=== PATIENT | male | born 1990 | race Two or more races ===

== ENCOUNTER 2021-03-02 16:20 | Emergency (ER) | payer MEDICAID, SELFPAY ==
--- NOTE | ~2021-03-02 | XR_ITS ---
EXAMINATION: XR CHEST CLINICAL INFORMATION: Shortness of breath COMPARISON: None TECHNIQUE: 2 views of the chest were obtained. FINDINGS: This exam is abnormal. Opacities bilaterally throughout the lungs may represent areas of infiltrate. Follow-up would be recommended as underlying lesions cannot be completely excluded. There is no effusion. The cardiac silhouette is felt to be within normal limits. XR/XR chest 2V IMPRESSION: Bilateral opacities may well be consistent with areas of diffuse lung infiltrates. Follow-up recommended
[2021-03-02 16:46] VITALS: BP 161/96; PULSE 118; RESP 20; TEMP 36.2; O2SAT 95; BMI 42.5
--- NOTE | 2021-03-02 16:51 | ECG_ITS ---
Test Reason : GENERAL MEDICAL Blood Pressure : / mmHG Vent. Rate : 119 BPM Atrial Rate : 119 BPM P-R Int : 132 ms QRS Dur : 078 ms QT Int : 324 ms P-R-T Axes : 050 057 019 degrees QTc Int : 455 ms Sinus tachycardia Otherwise normal ECG No previous ECGs available Referred By: Generic ED Physician Electronically Signed By:Tae Huffman
--- NOTE | 2021-03-02 20:17 | ED.URI ---
HPI - URI/Sore Throat General Chief Complaint: Upper Respiratory Symptoms Stated Complaint: +covid productive cough Time Seen by Provider: 03/02/21 19:49 Source: patient Mode of arrival: ambulatory Limitations: no limitations History of Present Illness HPI Narrative: 31-year-old male who presents emergency department for evaluation possible COVID pneumonia. The patient states that he tested positive for COVID-19 9 days prior. Patient states that initially had severe fatigue, myalgias, weakness, and cough. He also lost his sense of taste and smell. He states that he was feeling better however over the past 2-3 days he has developed pleuritic chest pain. He states that whenever he takes a deep breath in he feels as if he has a muscle ache in his chest. He states that he has some mild shortness of breath at rest and only mild dyspnea on exertion. He has a cough which is worse at night. 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 Related Data Previous Rx's Medication Instructions Recorded benzonatate 100 mg capsule 100 mg PO TID PRN #20 cap 03/02/21 Allergies Allergy/AdvReac Type Severity Reaction Status Date / Time No Known Allergies Allergy Verified 03/02/21 16:50 Review of Systems Review of Systems: Yes all other systems are reviewed and are negative Neurologic: Reports Abnormal speech present [facility] Past Medical History Attestation statement: The following information was validated with the patient. Social History Social History Advance Directives: No Advance Directives Information Provided: No Physical Exam Vital Signs: Vital Signs: Last Vital Signs Temp 97.2 F 03/02/21 16:46 Pulse 118 H 03/02/21 16:46 Resp 20 03/02/21 16:46 BP 161/96 H 03/02/21 16:46 Pulse Ox 95 03/02/21 16:46 BMI result Body Mass Index 42.5 Const: General: cooperative, no acute distress, well developed, alert and awake Orientation/consciousness: oriented to person HENMT: Head: Yes normal to inspection, Yes normocephalic and Yes atraumatic Ears: hearing grossly normal bilaterally General nose exam: Normal external nose present Face and sinus: Yes normal facial exam Mouth: Normal oral and palatal mucosa present, lip normal, tongue normal, oropharynx normal and moist mucous membranes Throat: Yes posterior oropharynx normal, Yes tonsils normal and Yes uvula midline Eyes: General: appearance normal, both eyes and all related structures Eyelids: Yes eyelids normal Conjunctivae: conjunctivae normal Sclerae: sclerae normal Corneas: corneas normal Pupils: Equal, round and reactive pupils present Neck: Neck: Yes normal visual inspection, Yes no lymphadenopathy, Yes trachea midline and Yes supple Thyroid: Thyroid normal Lymphatic: no lymphadenopathy noted Chest: Chest palpation & inspection: normal inspection of the chest and normal palpation of entire chest wall Resp: Effort & Inspection: normal respiratory effort and able to speak in complete sentences Auscultation: clear to auscultation bilaterally Cardio: Rate: regular rate Rhythm: regular rhythm Heart sounds: S1 normal heart sound present, S2 normal heart sound present and no murmurs GI: Inspection: Yes normal to inspection Palpation (GI): Soft to palpation, nontender and No hepatosplenomegaly present Auscultation: normal bowel sounds : General: Yes no CVA tenderness Back/Spine/Pelvis: Back: no CVA tenderness Thoracic/Lumbar Spine: thoracic and lumbar spine normal to inspection Skin: General skin exam: no rashes or lesions noted, no erythema and no jaundice Lesions: no lesions Rashes: no rashes Trauma: no lacerations or abrasions Wounds: no wounds Neuro: General: oriented to person, moves all extremities and no focal motor deficits Cranial nerves: Yes Equal, round and reactive pupils present Cognition (Neuro): normal cognition Speech: Abnormal speech present Motor exam (neuro): Motor abnormalities not present Extrem: General: Yes normal to inspection, Yes no pedal edema and Yes no calf tenderness Right upper extremity: normal to inspection Left upper extremity: normal to inspection Right lower extremity: normal to inspection Left lower extremity: normal to inspection Psych: Appearance: grossly normal Mental Status: mental status grossly normal Speech and movement: Normal speech and movement present Affect: normal affect Attitude: cooperative Thought process: Normal thought process present Insight: Good insight present (Psych) Course Course Course Narrative: 31-year-old male who presents emergency department for evaluation of possible COVID pneumonia. The patient has been sick for approximately 9 days and some of his symptoms improved however he is newly developed pleuritic chest pain. Patient states that he only has mild shortness of breath at rest and mild dyspnea on exertion. Initial vital signs revealed elevated blood pressure of 161/96, the patient does have known essential hypertension. Patient's pulse was elevated at 118. Patient's O2 saturation was 95% on room air. Lung exam was normal with no wheezing rales or rhonchi. Chest x-ray revealed bilateral opacities with areas of diffuse lung infiltrate. This is consistent with COVID 19 viral pneumonia. I did discuss this with the patient. At this time, steroids are not recommended given the fact that he is not hypoxic. The patient will be on day 10 of his illness tomorrow and may be the on the monoclonal antibody window however I will refer him to the [facility] to see if they will treat him. The patient was given verbal and printed instructions and discharged home he was started on Tessalon Perles for his cough. MDM - URI/Sore Throat ECG Data Attestation: I personally reviewed and interpreted this ECG as follows: Interpretation: 1710: Sinus tachycardia with a rate of 119, normal NE interval, QRS duration and QTC interval, no ST segment elevation, no ST segment depression, no Q-waves, no PACs, no PVCs, inverted T-wave in V1 except for the tachycardia, this is a normal EKG. Discharge Plan Discharge Clinical Impression: Pneumonia due to COVID-19 virus Patient Disposition: Home, Self-Care Instructions: Viral Pneumonia (ED), COVID-19 (Coronavirus Disease 2019) (ED) Additional Instructions: Your chest x-ray revealed that you do have pneumonia and this is caused by the COVID-19 virus. Viral pneumonias do not respond to antibiotics. Your O2 saturation today was 95% on room air. The COVID-19 viral pneumonia does not respond to steroid such as dexamethasone unless youroxygen level is below 88%. You may benefit from the COVID-19 monoclonal antibody treatment. This involves giving you IV antibiotics that help fight off the COVID-19 virus. I filled out the form for the [facility] in [place]. I emailed this form to them. I want you to call the clinic in the morning to see if you can get treated within the next 1-2 days Monoclonal antibody treatment is only effective within the 1st 10 days of illness. Take ibuprofen 200 mg pills, 2 pills every 6 hours as needed for pain. Take Tylenol (acetaminophen) 500 mg pills, 2 pills every 4 to 6 hours as needed for pain. Follow-up with your doctor in 2 days. Please return to the emergency department if your symptoms get worse or if you develop any symptoms that are concerning to you. Prescriptions: New benzonatate 100 mg capsule 100 mg PO TID PRN (Reason: cough) Qty: 20 RF: 0 Interventions: ED Discharge Assessment Last Done: 03/02/21 21:03 Discharge Date/Time: 03/02/21 21:05
[2021-03-02] MEDS: Benzonatate 100 MG CAPSULE 200 MG PO (21:04)
== END 2021-03-02 21:05 | disposition home or self-care (01) ==
PROVIDERS: Emergency Provider Emergency Medicine Emergency Medical Services; PCP Internal Medicine
DX: U07.1 COVID-19 (principal); J12.82 Pneumonia due to coronavirus disease 2019; I10 Essential (primary) hypertension
CPT/HCPCS: 71046; 93005; 99283

== ENCOUNTER 2023-03-14 12:30 | Outpatient (REF) | payer MEDICAID, SELFPAY ==
[2023-03-14 13:25] LABS: Hematocrit 43.8 % (42.0-52.0); Hemoglobin 15.1 g/dl (14.0-18.0); Mean Corpuscular HGB Conc 34.5 g/dl (31.0-36.0); Mean Corpuscular Hemoglobin 29.8 pg (27.0-33.0); Mean Corpuscular Volume 86.6 fL (80.0-98.0); Mean Platelet Volume 9.5 fL (9.4-12.4); Platelet Count 347 X10*3/uL (160-400); Red Blood Count 5.06 X10*6/uL (4.60-5.80); Red Cell Distribution Width 12.6 % (11.0-16.0); White Blood Count 7.8 X10*3/uL (4.8-10.8)
[2023-03-14 13:42] LABS: Estimated Average Glucose 105 mg/dL; Hemoglobin A1c % 5.3 % (<6.0)
[2023-03-14 14:09] LABS: Alanine Aminotransferase 23 U/L (0-40); Albumin Level 4.4 g/dL (3.5-5.0); Alkaline Phosphatase 67 U/L (39-117); Anion Gap 12 (12-20); Aspartate Amino Transferase 20 U/L (5-37); Bilirubin Direct 0.2 mg/dL (0.0-0.5); Bilirubin Total 0.5 mg/dL (0.0-1.0); Blood Urea Nitrogen 14 mg/dL (9-16); Calcium 9.5 mg/dL (8.4-10.2); Carbon Dioxide 26 mmol/L (22-29); Chloride 104 mmol/L (96-108); Estimated Glomerular Filt Rate > 60; Glucose Random 94 mg/dL (60-115); Potassium 3.8 mmol/L (3.3-5.1); Sodium 138 mmol/L (135-145); Total Protein 7.7 g/dL (6.5-8.0)
[2023-03-14 14:14] LABS: Thyroid Stimulating Hormone 1.68 uIU/mL (0.32-4.0); Vitamin D 25-OH Total 17.7 ng/mL (>30)
[2023-03-15 08:02] LABS: HBS Num1 409.58 mIU/mL (0-7.99); HBsAGNum1 0.38 S/CO (0.00-0.99); HIV AB/AG Nonreactive (Nonreactive); HIV Num 1 0.28 S/CO (0.00-0.99); Hepatitis B Surface Antigen Negative (Negative); ~HepC Num1 0.11 S/CO (0.00-0.79); ~Hepatitis B Surface Antibody REACTIVE (Nonreactive); ~Hepatitis C Antibody Nonreactive (Nonreactive)
[2023-03-16 13:23] LABS: RPR Rapid Plasma Reagin NON-REACTIVE (NON-REACTIVE)
== END 2023-03-14 12:31 | disposition home or self-care (01) ==
LOC: HO.HHCL 12:30
PROVIDERS: Visit Provider Family Medicine
DX: I10 Essential (primary) hypertension (principal)
CPT/HCPCS: 36415; 80048; 80076; 82306; 83036; 84439; 84443; 85027; 86592; 86706; 86803; 87340; 87389

== ENCOUNTER 2024-07-04 11:46 | Outpatient (REF) | payer MEDICAID, SELFPAY ==
--- OUTSIDE RECORDS SUMMARY | 2024-07-04 12:44 | XMS_ITS | Encounter Summary ---
Author Organization [employer] Address [address] [facility] [address] [place] [address] Care Team Providers Care Loom Stop Checker Name Role Phone Elizabeth Starr DO Primary Care Provider [phone] Reason for Visit * Reason Onset Date Comments Nurse Triage 02/06/2024 Encounter Details Date Type Department Care Team ([facility] st Contact Info) Description 02/06/2024 Telephone [facility] [address] [place], [place] [phone] Elizabeth Starr DO [address] [place] [address] Nurse Triage Social History Tobacco Use Types Packs/Day Years Used Date Smoking Tobacco: Never Depression Answer Date Recorded Patient Health Questionnaire-9 Score 0 03/14/2023 Patient Health Questionnaire-9 Score 0 03/14/2023 Last PHQ-9: Questionnaire Data Not on file 1 05/15/2022 Housing Stability Answer Date Recorded What is your housing situation today? I have trino vizcarra 01/29/[address] you li ve. Do you have problems with any of the following? None of the above 01/29/2023 Food Insecurity Answer Date Recorded Within the past 12 months, y ou worried that your food would run out before you got money to buy more: Sometimes True 2022 Within the past 12 months,th e food you bought just didn't last and you didn't have enough money to get more: Sometimes True 01/29/2023 Transportation Answer Date Recorded In the past 12 months, has l ack of transportation kept you from medical appts, meetings, work or from getting things needed for daily living? No 01/29/2023 Utilities Answer Date Recorded In the past 12 months, has t he electric, gas, oil or water company threatened to shut off services in your home? No 01/29/2023 Depression Answer Date Recorded Patient Health Questionnaire-2 Score 0 03/14/2023 Sex and Gender Information Value Date Recorded Sex Assigned at Male 01/23/2022 10:24 AM EDT Legal Sex Male 10:24 AM EDT Gender Identity Male 01/23/2022 10:24 AM EDT Sexual Orientation Choose not to disclose 2021 10:24 AM EDT documented as of this encounter Miscellaneous Notes * Telephone Encounter - Caridad Staples RN - 02/06/2024 3:05 PM EST Triage call Pt reports sinus sx for a year now but, much worse recently. Pt reports a growth in right nare which is blocking breathing through the nose. Pt thinks it could be cartilage which has shifted. Pt reports it is hard to breath at times and Pt feels a lot of pressure in the facial area. Pt reports post nasal drip is present frequently, neg for cough, fever. Pt is unable to taste/smell due to this blockage. Pt requests to see PCP. ASK apt with Dr. Starr 02/14/24 @ 1145am. Pt agrees with this disposition. Pt is advised if the symptoms become worse before this apt seek evaluation at closest ED. Pt agrees with this advice. Insurance is verified as active prior to booking. Protocol Used: Sinus Pain or Congestion (Adult) Protocol-Based Disposition: See in Office or Video Visit Today or Tomorrow Video visit not offered Positive Triage Questions: * Sinus congestion (pressure, fullness) present > 10 days * Patient wants to be seen * All higher-acuity triage questions were negative Care Advice Discussed: * Reassurance and Education - Colds and Sinus Congestion * Hydration * Expected Course * Reasons To Call Back - Severe pain lasts over 2 hours after pain medicine - Sinus pain lasts over 1 day after using nasal washes - Sinus congestion (fullness) lasts over 10 days - Fever lasts over 3 days - You become worse * Telephone Encounter - Vidhi Omalley - 02/06/2024 2:42 PM EST Symptom: Sinus Symptoms Outcome: Schedule an appointment to be seen within 24 hours Reason: Caller denied all higher acuity questions The caller accepted this outcome. documented in this encounter Plan of Treatment Not on file documented as of this encounter Visit Diagnoses Not on filedocumented in this encounter Additional Health Concerns Assessment Noted Time PHQ-9 Depression Total Score: 0 03/14/20 11:29 AM EST documented as of this encounter Care Teams Loom Stop Checker Relationship Specialty Start Date End Date Elizabeth Starr DO [address] [place] [id number] PCP - General Family Medicine 03/14/23 documented as of this encounter
--- OUTSIDE RECORDS SUMMARY | 2024-07-04 12:44 | XMS_ITS | Encounter Summary ---
Author Organization [employer] Address [address] [facility] [address] [place] [address] Care Team Providers Care Floor Care Technician Name Role Phone Elizabeth Starr DO Primary Care Provider + [phone] Reason for Visit * Reason Comments Med Refill Encounter Details Date Type Department Care Team ([facility] st Contact Info) Description 07/02/2024 Refill [facility]EDS [address] [place] [address] Elizabeth Starr DO [address] [place] [address] Social History Tobacco Use Types Packs/Day Years Used Date Smoking Tobacco: Never Depression Answer Date Recorded Patient Health Questionnaire-9 Score 14 07/04/2024 Patient Health Questionnaire-9 Score 14 07/04/2024 Last PHQ-9: Questionnaire Data Not on file 0 07/04/2024 Housing Stability Answer Date Recorded What is your housing situation today? I have trino vizcarra 07/04/[address] you li ve. Do you have problems with any of the following? None of the above 07/04/2024 Food Insecurity Answer Date Recorded Within the past 12 months, y ou worried that your food would run out before you got money to buy more: Sometimes True 2024 Within the past 12 months,th e food you bought just didn't last and you didn't have enough money to get more: Sometimes True 07/04/2024 Transportation Answer Date Recorded In the past 12 months, has l ack of transportation kept you from medical appts, meetings, work or from getting things needed for daily living? No 07/04/2024 Utilities Answer Date Recorded In the past 12 months, has t he electric, gas, oil or water company threatened to shut off services in your home? No 07/04/2024 Depression Answer Date Recorded Patient Health Questionnaire-2 Score 4 07/04/2024 Internet Access Answer Date Recorded Internet Access Q1 Yes 07/04/2024 Internet Access Q2 Not on file 07/04/2024 Sex and Gender Information Value Date Recorded Sex Assigned at Male 01/23/2022 10:24 AM EDT Legal Sex Male 10:24 AM EDT Gender Identity Male 01/23/2022 10:24 AM EDT Sexual Orientation Choose not to disclose 2021 10:24 AM EDT documented as of this encounter Plan of Treatment Not on file documented as of this encounter Visit Diagnoses Not on filedocumented in this encounter Additional Health Concerns Assessment Noted Time PHQ-9 Depression Total Score: 0 03/14/20 11:29 AM EST documented as of this encounter Care Teams Floor Care Technician Relationship Specialty Start Date End Date Elizabeth Starr DO [address] [place] [id number] PCP - General Family Medicine 03/14/23 documented as of this encounter
--- OUTSIDE RECORDS SUMMARY | 2024-07-04 12:44 | XMS_ITS | Encounter Summary ---
Author Organization [employer] Address [address] [facility] [address]t [place] [address] Care Team Providers Care Health Inspector Food Name Role Phone Twila Lopez Primary Care Provider + Elizabeth Starr DO Primary Care Provider + [phone] Reason for Visit * Reason Comments Med Refill Encounter Details Date Type Department Care Team (Late st Contact Info) Description 02/12/2023 Refill [facility] [address] [place] [address] Twila Lopez FNP [address] [place] [address] Primary hypertension Social History Tobacco Use Types Packs/Day Years Used Date Smoking Tobacco: Never Assessed Housing Stability Answer Date Recorded What is [...] the past 12 months, has t he [employer], gas, oil or water [employer] threatened to shut off services in your home? No 01/29/2023 Depression Answer Date Recorded Patient Health Questionnaire-2 Score 1 03/07/2022 Sex and Gender Information Value Date Recorded Sex Assigned at Male 01/23/2022 10:24 AM EDT Legal Sex Male 10:24 AM EDT Gender Identity Male 01/23/2022 10:24 AM EDT Sexual Orientation Choose not to disclose 2021 10:24 AM EDT documented as of this encounter Plan of Treatment Not on file documented as of this encounter Visit Diagnoses Diagnosis Primary hypertension Unspecified essential hypertension documented in this encounter Care Teams Health Inspector Food Relationship Specialty Start Date End Date Twila Lopez FNP [address] [place] [address] PCP - General Family Medicine 01/03/22 03/13/23 Elizabeth Starr DO [address] [place] [address] PCP - General Family Medicine 03/14/23 documented as of this encounter
--- OUTSIDE RECORDS SUMMARY | 2024-07-04 12:44 | XMS_ITS | Encounter Summary ---
Author Organization [employer] Address [address] [facility] [address] [place] [address] Care Team Providers Care Employee Benefits Administrator Name Role Phone Elizabeth Starr DO Primary Care Provider + [phone] Reason for Visit * Reason Onset Date Comments insurance call 07/02/2024 Encounter Details Date Type Department Care Team (Late st Contact Info) Description 07/02/2024 Telephone [facility] [address] [place], [place] [phone] Elizabeth Starr DO [address] [place] [address] insurance call Social History Tobacco Use Types Packs/Day Years [...] encounter Miscellaneous Notes * Telephone Encounter - Cindy Dillon - 07/02/2024 10:52 AM EDT Called PT to let him know that his insurance is link to another PCP and will need to link it to current PCP Elizabeth Starr. PT NA\LVM documented in this encounter Plan of Treatment Not on file documented as of this encounter Visit Diagnoses Not on filedocumented in this encounter Additional Health Concerns Assessment Noted Time PHQ-9 Depression Total Score: 0 03/14/20 11:29 AM EST documented as of this encounter Care Teams Employee Benefits Administrator Relationship Specialty Start Date End Date Elizabeth Starr DO [address] [place] [address] PCP - General Family Medicine 03/14/23 documented as of this encounter
--- OUTSIDE RECORDS SUMMARY | 2024-07-04 12:44 | XMS_ITS | Encounter Summary ---
Author Organization [employer] Address [address] [facility] [address] [place] [address] Care Team Providers Care Advanced Research Programs Director Name Role Phone Twila Lopez Primary Care Provider +- Elizabeth Starr DO Primary Care Provider [phone] Encounter Details Date Type Department Care Team (Late st Contact Info) Description 11/01/2022 Orders Only [facility]S [address] [place] [address] Twila Lopez FNP [address] [place] [address] Social History Tobacco Use Types Packs/Day Years Used Date Smoking Tobacco: Never Assessed Depression Answer Date Recorded Patient Health Questionnaire-2 [...] Diagnoses Not on filedocumented in this encounter Care Teams Advanced Research Programs Director Relationship Specialty Start Date End Date Twila Lopez FNP [address] [place] [address] PCP - General Family Medicine 01/03/22 03/13/23 Elizabeth Starr DO [address] [place] [address] PCP - General Family Medicine 03/14/23 documented as of this encounter
--- OUTSIDE RECORDS SUMMARY | 2024-07-04 12:44 | XMS_ITS | Encounter Summary ---
Author Organization [employer] Address [address] [place] [address] Care Team Providers Care Military Science Instructor Name Role Phone Elizabeth Starr DO Primary Care Provider + [phone] Encounter Details Date Type Department Care Team ([facility] st Contact Info) Description 07/04/2024 10:30 AM EDT Office Visit [facility] MED[facility] [address] [place], [place] [phone] Elizabeth Starr DO [address] [place] [address] Routine history and physical examination of adult (Primary Dx); Essential hypertension; Mild intermittent asthma without complication; Chronic bipolar disorder (CMS/HCC); BMI 45.0-49.9, adult ([facility]/HCC) Social History Tobacco Use Types Packs/Day Years Used Date Smoking Tobacco: Some Days Cigarettes Passive Smoke Exposure: Current Tobacco Cessation:Ready to Q uit: Not Asked; Counseling Given: Not Answered Alcohol Use Standard Drinks/Week Comments Never 0 (1 standard drink = 0.6 oz pur e alcohol) Depression Answer Date Recorded Patient Health Questionnaire-9 [...] AM EDT documented as of this encounter Last Filed Vital Signs Vital Sign Reading Time Taken Comments Blood Pressure 190/121 07/04/2024 10:45 AM EDT Pulse 107 07/04/2024 10:45 AM EDT Temperature 36.8 ??C (98.3 ??F) 07/04/2024 10:45 AM E DT Respiratory Rate 16 07/04/2024 10:45 AM EDT Oxygen Saturation 99% 07/04/2024 10:45 AM EDT Inhaled Oxygen Concentration - - Weight 138 kg (304 lb 9.6 oz) 07/04/2024 10:45 A M EDT Height 172.7 cm (5' 8 ) 07/04/2024 10:45 AM EDT Body Mass Index 46.31 07/04/2024 10:45 AM EDT documented in this encounter Plan of Treatment Scheduled Orders Name Type Priority Associated Diagnoses Orde r Schedule T4, Free Lab Routine Routine history and physical examination of adult Essential hypertension Mild intermittent asthma without complication Chronic bipolar disorder (CMS/HCC) BMI 45.0-49.9, adult (CMS/HCC) Expected: 07/04/2024 (Approximate), Expires: 07/04/2025 Vitamin D, 25-Hydroxy, Total, Immunoassay Lab Routine Routine history and physical examination of adult Essential hypertension Mild intermittent asthma without complication Chronic bipolar disorder ([facility]/HCC) BMI 45.0-49.9, adult ([facility]) Expected: 07/04/2024 (Approximate), Expires: 07/04/2025 Lipid Panel, Standard Lab Routine Routine history and physical examination of adult Essential hypertension Mild intermittent asthma without complication Chronic bipolar disorder ([facility]/HCC) BMI 45.0-49.9, adult ([facility]) Expected: 07/04/2024 (Approximate), Expires: 07/04/2025 TSH Lab Routine Routine history and physical examination of adult Essential hypertension Mild intermittent asthma without complication Chronic bipolar disorder ([facility]) BMI 45.0-49.9, adult ([facility]) Expected: 07/04/2024 (Approximate), Expires: 07/04/2025 Hepatic Function Panel Lab Routine Routine history and physical examination of adult Essential hypertension Mild intermittent asthma without complication Chronic bipolar disorder ([facility]) BMI 45.0-49.9, adult ([facility]) Expected: 07/04/2024 (Approximate), Expires: 07/04/2025 Hemoglobin A1c Lab Routine Routine history and physical examination of adult Essential hypertension Mild intermittent asthma without complication Chronic bipolar disorder ([facility]) BMI 45.0-49.9, adult ([facility]) Expected: 07/04/2024 (Approximate), Expires: 07/04/2025 Basic Metabolic Panel Lab Routine Routine history and physical examination of adult Essential hypertension Mild intermittent asthma without complication Chronic bipolar disorder ([facility]) BMI 45.0-49.9, adult ([facility]) Expected: 07/04/2024 (Approximate), Expires: 07/04/2025 CBC Lab Routine Routine history and physical examination of adult Essential hypertension Mild intermittent asthma without complication Chronic bipolar disorder ([facility]/HCC) BMI 45.0-49.9, adult ([facility]) Expected: 07/04/2024, Expires: 07/04/2025 Albumin, Random Urine W/Creatinine Lab Routine Routine history and physical examination of adult Essential hypertension Mild intermittent asthma without complication Chronic bipolar disorder ([facility]) BMI 45.0-49.9, adult ([facility]) Expected: 07/04/2024 (Approximate), Expires: 07/04/2025 Hepatitis B surface antigen, EIA Lab Routine Routine history and physical examination of adult Essential hypertension Mild intermittent asthma without complication Chronic bipolar disorder ([facility]/HCC) BMI 45.0-49.9, adult ([facility]) Expected: 07/04/2024 (Approximate), Expires: 07/04/2025 Chlamydia/N. Gonorrhoeae RNA, TMA, Urogenitial Microbiology Routine Routine history and physical examination of adult Essential hypertension Mild intermittent asthma without complication Chronic bipolar disorder ([facility]/HCC) BMI 45.0-49.9, adult ([facility]) Ordered: 07/04/2024 HIV-1/2 Antigen and Antibodies, Fourth Generation, with Reflexes Lab Routine Routine history and physical examination of adult Essential hypertension Mild intermittent asthma without complication Chronic bipolar disorder (CMS/HCC) BMI 45.0-49.9, adult ([facility]) Expected: 07/04/2024 (Approximate), Expires: 07/04/2025 Hepatitis C Antibody with Reflex to HCV, RNA, Quantitative, Real-Time PCR Lab Routine Routine history and physical examination of adult Essential hypertension Mild intermittent asthma without complication Chronic bipolar disorder (CMS/HCC) BMI 45.0-49.9, adult ([facility]) Expected: 07/04/2024, Expires: 07/04/2025 RPR (Monitor) with Reflex to??Titer Lab Routine Routine history and physical examination of adult Essential hypertension Mild intermittent asthma without complication Chronic bipolar disorder ([facility]/HCC) BMI 45.0-49.9, adult ([facility]) Expected: 07/04/2024, Expires: 07/04/2025 Hepatitis B Surface Antibody, Qualitative Lab Routine Routine history and physical examination of adult Essential hypertension Mild intermittent asthma without complication Chronic bipolar disorder ([facility]/HCC) BMI 45.0-49.9, adult ([facility]) Expected: 07/04/2024 (Approximate), Expires: 07/04/2025 Hepatitis A Antibody, Total Lab Routine Routine history and physical examination of adult Essential hypertension Mild intermittent asthma without complication Chronic bipolar disorder (CMS/HCC) BMI 45.0-49.9, adult ([facility]) Expected: 07/04/2024 (Approximate), Expires: 07/04/2025 Hepatitis B Core Antibody, Total Lab Routine Routine history and physical examination of adult Essential hypertension Mild intermittent asthma without complication Chronic bipolar disorder ([facility]) BMI 45.0-49.9, adult ([facility]) Expected: 07/04/2024 (Approximate), Expires: 07/04/2025 documented as of this encounter Visit Diagnoses Diagnosis Routine history and physical examination of adult- Primary Essential hypertension Unspecified essential hypertension Mild intermittent asthma without complication Chronic bipolar disorder ([facility]) BMI 45.0-49.9, adult ([facility]) documented in this encounter Additional Health Concerns Assessment Noted Time PHQ-9 Depression Total Score: 14 025 11:35 AM EDT documented as of this encounter Care Teams Military Science Instructor Relationship Specialty Start Date End Date Elizabeth Starr DO [address] [place] [id number] PCP - General Family Medicine 03/14/23 documented as of this encounter
--- OUTSIDE RECORDS SUMMARY | 2024-07-04 12:44 | XMS_ITS | Encounter Summary ---
Author Organization [employer] Address [address] [facility] 7t [place] [address] Care Team Providers Care Brood Hatchery Manager Name Role Phone Twila Lopez Primary Care Provider [phone] Elizabeth Starr DO Primary Care Provider [phone] Reason for Visit * Reason Onset Date Comments Med Refill 04/13/2022 Encounter Details Date Type Department Care Team (Late st Contact Info) Description 04/13/2022 Telephone [facility] MEDICINE [address] [place] [address] Twila Lopez FNP [address] [place] [address] Med Refill Social History Tobacco Use Types Packs/Day Years [...] encounter Miscellaneous Notes * Telephone Encounter - lEizabeth Chandler LPN - 04/13/2022 1:56 PM EST Medication queued to PCP awaiting approval. * Telephone Encounter - Vidhi Omalley - 04/13/2022 1:33 PM EST Tc from pt spouse felipa requesting med refill for medication hydroCHLOROthiazide (HYDRODiuril) 25MG tablet . [facility] pharmacy informed pt that the insurance is not covering the 30 day supply , if it can be switched over to the 90 day . documented in this encounter Plan of Treatment Not on file documented as of this encounter Visit Diagnoses Not on filedocumented in this encounter Care Teams Brood Hatchery Manager Relationship Specialty Start Date End Date Twila Lopez FNP [address] [place], [place] [phone] PCP - General Family Medicine 01/03/22 03/13/23 Elizabeth Starr DO [address] [place] [address] PCP - General Family Medicine 03/14/23 documented as of this encounter
--- OUTSIDE RECORDS SUMMARY | 2024-07-04 12:45 | XMS_ITS | Patient Health Record ---
Author Organization [facility] Address [address] [place] [address] Support Name Relationship Address Phone Mark Viera Guarantor Unknown Unavailable Reason For Referral No Information Plan Of Treatment No Information Insurance Providers Payer Name Payer Address Payer Phone Subscriber Number Group Number Insured Name Patient Relationship to Insured Coverage Start Date Coverage End Date M Self Pay [id number] [place] [phone] Mark Viera Self - patient is the insured
--- OUTSIDE RECORDS SUMMARY | 2024-07-04 12:45 | XMS_ITS | Encounter Summary ---
Author Organization [employer] Address [address] [place] [address] Care Team Providers Care Traffic Analyst Name Role Phone RoElizabeth Primary Care Provider + [phone] Encounter Details Date Type Department Care Team (Latest Contact Info) Description 07/04/2024 Travel Social History Tobacco Use Types Packs/Day Years Used Date Smoking Tobacco: Some Days Cigarettes Passive Smoke Exposure: Current Alcohol Use Standard Drinks/Week Comments Never 0 [...] documented as of this encounter Care Teams Traffic Analyst Relationship Specialty Start Date End Date Elizabeth Starr DO [address] [place] [address] PCP - General Family Medicine 03/14/23 documented as of this encounter
--- OUTSIDE RECORDS SUMMARY | 2024-07-04 12:45 | XMS_ITS ---
Author Organization [employer] Address [address] [place] [address] Care Team Providers Care Soa Engineer Name Role Phone [facility] Unavailable [phone] REASON FOR VISIT RL TO [facility] Prescription Refill Encounters Encounter Location Date Provider Diagnosis [facility] [address] [place] [address] 02/12/2023 [facility] Plan Of Treatment No Information Progress Notes * Kristy VIERAOB:1990 ([age] yo M)Acc No.[id number]:02/12/2023 Patient:?Mark VIERA Provider:?[facility] :1990???Age:33 Y???Sex:Male Lyle e:02/12/2023 Phone: Address:[address] [place], [place]-[phone] Subjective: * Chief Complaints: * ???1. RL TO [facility] Prescri ption Refill. * Medical History:? Objective: * Vitals:? Assessment: Plan: * Treatment: * Billing Information: * Visit Code:? * Procedure Codes:? * Electronic signature of [facility] on 07/04/2024 at 12:44 PM EDT Sign off status: Pending * Provider:?[facility] Date:?04/14/2022 Generated for Sukumar burr/Jomar/eTransmitting on:?07/04/2024 12:44 PM EDT
--- OUTSIDE RECORDS SUMMARY | 2024-07-04 12:45 | XMS_ITS | Clinical Summary ---
Author Organization [employer] Address [address] [facility] [address] [place] [address] Care Team Providers Care Registered Account Administrator Name Role Phone Elizabeth Starr DO Primary Care Provider [phone] Allergies No known active allergies Medications cholecalciferol (Vitamin D-3) 50 MCG (1999) capsuleIndication s:Vitamin D deficiency Take 1 tablet by mouth daily 90 capsule 3 3 Active hydroCHLOROthiazi de (HYDRODiuril) 25 MG tabletIndications :Primary hypertension TAKE 1 TABLET BY MOUTH EVERY DAY IN THE MORNING 90 tablet 1 4 Active albuterol 108 (90 Base) MCG/ACT inhaler INHALE 2 PUFFS BY MOUTH EVERY 4 HOURS IF NEEDED. 6.7 g 2 4 Active lisinopril (Prinivil) 10 MG tablet Take 1 tablet (10 mg) by mouth Once per day. 30 tablet 3 4 03/07/20 25 Active Active Problems Problem Noted Date Diagnosed Date Vitamin D deficiency 07/04/2024 BMI 45.0-49.9, adult 03/14/2023 Essential hypertension 03/14/2023 Mild intermittent asthma 03/14/2023 Chronic bipolar disorder 03/14/2023 Anxiety 03/14/2023 Encounters Date Type Department Care Team Description 07/04/2024 10:30 AM EDT Office Visit [facility] MEDICINE [address] [place] [address] Elizabeth Starr DO Routine history and physical examination of adult (Primary Dx); Essential hypertension; Mild intermittent asthma without complication; Chronic bipolar disorder (CMS/HCC); BMI 45.0-49.9, adult ([facility]) 07/04/2024 Travel 07/02/2024 Telephone [facility] [address] [place] [address] Elizabeth Starr DO insurance call 07/02/2024 Refill [facility] [address] [place], [place] [phone] Elizabeth Starr DO 06/27/2024 Patient Outreach [facility] [address], [place] [phone] Elizabeth Starr, Pre-visit Planning ([facility] unable to reach LVM) 06/27/2024 Travel 05/13/2024 Telephone [facility] [address] [place] [address] Elizabeth Starr DO Recall Appt. 05/13/2024 Travel from Last 3 Months Immunizations Name Administration Dates Next Due Hep B, adult 01/27/2021 Influenza Injectable Quadriv alant Preservative Free IIV4 MDCK 01/03/2022 Influenza injectable quadrivalent preservative f ree 02/04/2021,03/04/2020 Tdap 01/27/2021 Family History Medical History Relation Name Comments Hypertension Father Colon cancer Maternal Grandmother Diabetes Maternal Grandmother Bipolar disorder Mother HUGO disease Mother Diabetes Mother's Brother Lung cancer Paternal Grandmother Relation Name Status Comments Father Maternal Grandmother Mother Mother's Brother Paternal Grandmother Social History Tobacco Use Types Packs/Day Years [...] not to disclose 2021 10:24 AM EDT Last Filed Vital Signs Vital Sign Reading [...] Mass Index 46.31 07/04/2024 10:45 AM EDT Plan of Treatment Health Maintenance Due Date Last Done Comments Alcohol/Substance Use Screening 2001 Family Planning (PISQ) 01/17/2004 Pneumococcal Vaccine: Pediatrics (0 to 5 Years) and At-Risk Patients (6 to 49) Years) (1 of 2 - PCV) 01/17/2008 Hepatitis B Vaccines (2 of 3 - 19+ 3-dose series) 02/24/2021 01/27/2021 COVID-19 Vaccine (1 - 2023-2 5 season) 2023 Influenza Vaccine (#1) 2023 , 02/04/2021, 03/04/2020 Depression Monitoring 01/03/2025 07/04/2024 , 07/04/2024 Depression Screening 07/04/2025 07/04/2024, 07/04/2024 SDOH Screening 07/04/2025 07/04/2024 Tobacco Screening 07/04/2025 07/04/2024 Lipid Panel 01/25/2026 01/25/2021 DTaP/Tdap/Td Vaccines (2 - T d or Tdap) 01/27/2031 01/27/2021 Zoster Vaccines (1 of 2) 2039 RSV Patients and Patients Aged 60 years or older (1 - 1-dose 75+ series) 01/17/2064 HIV Screening Completed 03/14/2023, 01/25/2021 Hepatitis C Screening Completed 03/14/2023 , 01/25/2021 HIB Vaccines Aged Out No longer eligi ble based on patient's age to complete this topic HPV Vaccines Aged Out No longer eligi ble based on patient's age to complete this topic Hepatitis A Vaccines Aged Out No long er eligible based on patient's age to complete this topic IPV Vaccines Aged Out No longer eligi ble based on patient's age to complete this topic Meningococcal Vaccine Aged Out No leodan hugo eligible based on patient's age to complete this topic RSV under 20 months Aged Out No longe r eligible based on patient's age to complete this topic Rotavirus Vaccines Aged Out No longer eligible based on patient's age to complete this topic Procedures Procedure Name Priority Date/Time Associated Diagnosis Comments HEPATITIS C AB W/REFL TO HCV RNA, QN, PCR Routine 03/14/2023 12:32 PM EST Essential hypertension HIV 1/2 ANTIGEN/ANTIBODY, FOURTH GENERATION W/RFL Routine 03/14/2023 12:32 PM EST Essential hypertension LIPID PANEL, STANDARD Routine 01/25/2021 9:21 AM EDT from Last 3 Months or Most Recently Relevant to Health Maintenance Results * Hepatitis C Antibody with Reflex to HCV, RNA, Quantitative, Real-Time PCR (03/14/2023 12:32 PM EST) Hepatitis C Antibody Nonreactive Nonreactive [facility] Comment:Antibodies to HCV no t detected; does not exclude early acuteHCV infection. Blood Venous blood specimen / Unknown 03/14/2023 12:32 PM EST 03/14/2023 1:10 PM EST us Elizabeth Starr DO LAB BLOOD ORDERABLES Final R esult Performing Organization Address [facility]/ZIP Co de Phone Number [facility] [address] [place] [phone] * HIV-1/2 Antigen and Antibodies, Fourth Generation, with Reflexes (03/14/2023 12:32 PM EST) HIV AB/AG Nonreactive Nonreactive [facility] Comment:HIV-1 p24 Ag and/or HIV-1/HIV-2 Ab not detected.A test result that is nonreactive does not exclude thepossibility of exposure to or infection with HIV-1 and/orHIV-2. Nonreactive results in this assay for individualswith prior exposure to HIV-1 and/or HIV-2 may be due toantigen and antibody levels that are below the limit ofdetection of this assay.The [employer] HIV Ag/Ab Combo assay result andsupplemental assay results should be interpreted inconjunction with the patient's clinical presentation,history and other laboratory results. If the results areinconsistent with clinical evidence, additional testing issuggested to confirm the result. Blood Venous blood specimen / Unknown 03/14/2023 12:32 PM EST 03/14/2023 1:10 PM EST us Elizabeth Starr DO LAB BLOOD ORDERABLES Final R esult Performing Organization Address City/[facility]/ZIP Co de Phone Number [facility] [address] [place] [address] [phone] * (ABNORMAL) LIPID PANEL, STANDARD (01/25/2021 9:21 AM EDT) Chol/HDLC Ratio 5.1(H) <5.0 (calc) [facility] Cholesterol, Total 185 <200 mg/dL [facility] HDL Cholesterol 36(L) > OR = 40 mg/dL [facility] LDL Cholesterol 130(H) mg/dL (calc) [facility] Comment: Reference range: <100 ?? Desirable range <100 mg/dL for primary prevention; ?? <70 mg/dL for patients with CHD or diabetic patients ?? with > or = 2 CHD risk factors. ?? LDL-C is now calculated using the Rosy ?? calculation, which is a validated novel method providing ?? better accuracy than the Friedewald equation in the ?? estimation of LDL-C. ?? Kain GUADARRAMA et al. ANSLEY. 2013;310(19): 4037-2186 ?? (http://education.M[employer]/faq/GDE663) Non-HDL Cholesterol 149(H) <130 mg/dL (calc) [facility] Comment: For patients with diabetes plus 1 major ASCVD risk ?? factor, treating to a non-HDL-C goal of <100 mg/dL ?? (LDL-C of <70 mg/dL) is considered a therapeutic ?? option. Triglycerides 87 <150 mg/dL [facility] 01/25/2021 9:21 AM EDT us Ermias Gonzalez MD LAB BLOOD ORDERABLES Final R esult [facility] [address] from Last 3 Months or Most Recently Relevant to Health Maintenance Insurance [employer] PPO Care Teams Registered Account Administrator Relationship Specialty Start Date End Date Elizabeth Starr DO [address] [place] [phone] PCP - General Family Medicine 03/14/23
--- OUTSIDE RECORDS SUMMARY | 2024-07-04 12:45 | XMS_ITS | Clinical Summary ---
Author Organization [facility] Address [address] [place] [address] Care Team Providers Care Rescue Worker Name Role Phone Unavailable Primary Care Provider Unavailabl e Social History Tobacco Use Types Packs/Day Years Used Date Smoking Tobacco: Never Assessed Sex and Gender Information Value Date Recorded Sex Assigned at Not on file Legal Sex Male 1:39 PM EDT Gender Identity Not on file Sexual Orientation Not on file Plan of Treatment Health Maintenance Due Date Last Done Comments DTaP,Tdap,and Td Vaccines (1 - Tdap) 01/17/2008 Hepatitis B Vaccines (1 of 3 - 19+ 3-dose series) 01/17/2008 Cholesterol Screening (Lipid Panel) 10/17/2023 Depression Screening 10/17/2023 HIV Screening 10/17/2023 Hepatitis C Screening 10/17/2023 Social Influencers of Health Screening 10/17/2023 COVID-19 Vaccine ( - 2023-2 5 season) 2023 Influenza Vaccine (Season Ended) 2024 HIB Vaccines Aged Out No longer eligi [...] on patient's age to complete this topic MMR Vaccines Aged Out No longer eligi ble based on patient's age to complete this topic Meningococcal ACWY Vaccine Aged Out N o longer eligible based on patient's age to complete this topic Meningococcal B Vaccine Aged Out No l onger eligible based on patient's age to complete this topic Pneumococcal Vaccine: Pediat rics (0 to 5 Years) and At-Risk Patients (6 to 64 Years) Aged Out No longer eligible b ased on patient's age to complete this topic RSV Immunization Patients Un eric 20 months Aged Out No longer eligible b ased on patient's age to complete this topic Varicella Vaccines Aged Out No longer eligible based on patient's age to complete this topic
[2024-07-04 13:27] LABS: Hematocrit 44.3 % (42.0-52.0); Hemoglobin 15.2 g/dl (14.0-18.0); Mean Corpuscular HGB Conc 34.3 g/dl (31.0-36.0); Mean Corpuscular Hemoglobin 29.6 pg (27.0-33.0); Mean Corpuscular Volume 86.2 fL (80.0-98.0); Mean Platelet Volume 9.7 fL (9.4-12.4); Platelet Count 322 X10*3/uL (160-400); Red Blood Count 5.14 X10*6/uL (4.60-5.80); Red Cell Distribution Width 12.3 % (11.0-16.0); White Blood Count 7.3 X10*3/uL (4.8-10.8)
[2024-07-04 13:42] LABS: Alanine Aminotransferase 36 U/L (0-40); Albumin Level 4.6 g/dL (3.5-5.0); Alkaline Phosphatase 71 U/L (39-117); Anion Gap 10 (12-20); Aspartate Amino Transferase 30 U/L (5-37); Bilirubin Direct 0.2 mg/dL (0.0-0.5); Bilirubin Total 0.6 mg/dL (0.0-1.0); Blood Urea Nitrogen 12 mg/dL (9-16); Calcium 9.2 mg/dL (8.4-10.2); Carbon Dioxide 30 mmol/L (22-29); Chloride 104 mmol/L (96-108); Cholesterol 191 mg/dL (<200); Estimated Glomerular Filt Rate > 60; Glucose Random 91 mg/dL (60-115); HDL Cholesterol 38 mg/dL (>40); LDL Cholesterol Calculated 131 mg/dL (<100); Potassium 4.2 mmol/L (3.3-5.1); Sodium 140 mmol/L (135-145); Total Protein 7.7 g/dL (6.5-8.0); Triglycerides 110 mg/dL (<150)
[2024-07-04 13:44] LABS: Estimated Average Glucose 108 mg/dL; Hemoglobin A1c % 5.4 % (<6.0); Total Hemoglobin (HGBA1C) 3977.8649 umol/L
[2024-07-04 14:04] LABS: HBS Num1 397.04 mIU/mL (0-7.99); HBc Num1 0.07 S/CO (0.00-0.79); HBsAGNum1 0.32 S/CO (0.00-0.99); HIV AB/AG Nonreactive (Nonreactive); HIV Num 1 0.21 S/CO (0.00-0.99); Hepatitis B Core Antibody Nonreactive (Nonreactive); Hepatitis B Surface Antigen Negative (Negative); ~HepC Num1 0.12 S/CO (0.00-0.79); ~Hepatitis B Surface Antibody REACTIVE (Nonreactive); ~Hepatitis C Antibody Nonreactive (Nonreactive)
[2024-07-04 14:06] LABS: Free T4 (Free Thyroxine) 1.07 ng/dL (0.71-1.85); Thyroid Stimulating Hormone 1.44 uIU/mL (0.32-4.0); Vitamin D 25-OH Total 34.1 ng/mL (>30)
[2024-07-04 14:08] LABS: Creatinine Urine 155.34 mg/dL; Microalbum/Creatinine Ratio Ur 6.4 ug/mg cr (<30)
[2024-07-04 15:48] LABS: CT PCR NOT DETECTED (Not Detect.); NG PCR NOT DETECTED (Not Detect.)
[2024-07-06 13:28] LABS: RPR Rapid Plasma Reagin NON-REACTIVE (NON-REACTIVE)
[2024-07-08 08:09] LABS: Hepatitis A Antibody IgG Nonreactive (Nonreactive); ~Hepatitis A Antibody IgG 0.26 S/CO (0.00-0.99)
== END 2024-07-04 11:47 | disposition home or self-care (01) ==
LOC: HO.HHCL 11:46
PROVIDERS: Visit Provider Family Medicine
DX: Z00.00 Encounter for general adult medical examination without abnormal findings (principal); I10 Essential (primary) hypertension; J45.20 Mild intermittent asthma, uncomplicated; F31.9 Bipolar disorder, unspecified; Z68.42 Body mass index [BMI] 45.0-49.9, adult
CPT/HCPCS: 80048; 80061; 80076; 82043; 82306; 82570; 83036; 84439; 84443; 85027; 86592; 86704; 86706; 86708; 86803; 87340; 87389; 87491; 87591